=== PATIENT | female | born 1995 | race Hispanic/Latino ===

== ENCOUNTER 2021-03-01 12:01 | Emergency (ER) | payer MEDICARE ==
[~2021-03-01] VITALS: Ht 162.6 cm; Wt 83.9 kg
[2021-03-01 12:51] LABS: CLARITY,URINE CLOUDY (CLEAR); COLOR,URINE YELLOW (YELLOW); KETONES,URINE TRACE (NEGATIVE); LEUKOCYTE ESTERASE ,URINE LARGE (NEGATIVE); NITRITE,URINE NEGATIVE (NEGATIVE); PROTEIN,URINE DIPSTICK TRACE (NEGATIVE); URINE UROBILINOGEN 0.2 mg/dL (0.2 - 1)
[2021-03-01 13:00] LABS: BACTERIA,URINE MODERATE /HPF; EPITHELIAL CELLS,URINE FEW /LPF; WBC,URINE (MAN) >50 /HPF (0-5)
[2021-03-01] MEDS ORDERED: CEFTRIAXONE SOD 1 GM VIAL IM ONE (13:30)
[2021-03-01] MEDS ORDERED: LIDOCAINE HCL 1% LOCAL INJ 20 ML VIAL ONE (13:43)
== END 2021-03-01 13:45 | disposition home or self-care (01) ==
LOC: ER 12:08
DX: O23.41 Unspecified infection of urinary tract in pregnancy, first trimester (principal); R30.0 Dysuria; Z20.822 Contact with and (suspected) exposure to COVID-19
CPT/HCPCS: 81001; 81025; 87086; 87186; 99283; J0696; J2001; U0002

== ENCOUNTER 2021-08-28 17:58 | Emergency (ER) | payer OTHER ==
[~2021-08-28] VITALS: Ht 162.6 cm; Wt 83.9 kg
[2021-08-28 19:48] LABS: CLARITY,URINE CLOUDY (CLEAR); COLOR,URINE YELLOW (YELLOW); KETONES,URINE 1+ (NEGATIVE); LEUKOCYTE ESTERASE ,URINE TRACE (NEGATIVE); NITRITE,URINE NEGATIVE (NEGATIVE); PROTEIN,URINE DIPSTICK NEGATIVE (NEGATIVE); URINE UROBILINOGEN 0.2 mg/dL (0.2 - 1)
[2021-08-28 20:08] LABS: BACTERIA,URINE MANY /HPF; EPITHELIAL CELLS,URINE MANY /LPF; TRANSITIONAL EPI CELLS,URINE FEW
[2021-08-28] MEDS ORDERED: CEPHALEXIN500 MG PO (20:22)
[2021-08-28 20:32] VITALS: BP 122/76
== END 2021-08-28 20:33 | disposition home or self-care (01) ==
LOC: ER 18:22
DX: O23.43 Unspecified infection of urinary tract in pregnancy, third trimester (principal)
CPT/HCPCS: 81001; 87491; 87591; 99284